=== PATIENT | female | born 1955 | race Two or more races ===

== ENCOUNTER → 2017-02-17 | Outpatient (CLI) | payer OTHER ==
--- NOTE | ~2017-02-17 | MY29 ---
[facility] A Service of [facility] RADIOLOGY TEXT RESULTS PATIENT: MEET REYNA LOCATION: [facility] : 59 UNIT #: [id number] AGE: [address]: THELMA LATIF APRN SEX: F ORDER DR: [id number] [facility] [address] [place], [place] [address] [id number] O MR#: [id number] Acc #: [id number] NAME: MEET REYNA : 1955 SEX: F STUDY DATE/TIME: 02/17/2017 15:25 UNIT: [facility] ROOM: STUDY DESCRIPTION: MY HANS SCREENING W/ CAD BILAT Referring Physician: Mohan Lezama M.D. Ordering Physician: Gino Latif Aprn Primary Care Physician: Mohan Lezama M.D. MEDICAL IMAGING REPORT This report is preliminary unless electronic signature is present EXAM Digital screening mammogram 02/17/2017 HISTORY 61-year-old woman positive family history, mother age 55. Annual screening. COMPARISON STUDIES Mammogram 07/15/2014. Right breast imaging 11/13/2014. FINDINGS Digital imaging of each breast was completed utilizing screening protocol. Review includes FDA-approved CAD device. Breast parenchyma is predominantly fatty replaced in each breast. Mild duct ectasia. Right subareolar location is stable. I see no suspicious mass. There are no interval occurring microcalcifications and no architectural deformity. IMPRESSION Negative mammogram. Annual screening recommended. BIRADS: 1 Negative. Patients over the age of 40 are entered into a reminder system with target due date for the next mammogram. A result letter will also be sent to the patient. Dictated by... Jose Velasco M.D. THIS IS AN ELECTRONICALLY VERIFIED REPORT Jose Velasco M.D. at 02/20/2017 8:06 AM LAINEYB/nkiita [facility] A Service of [facility] RADIOLOGY TEXT RESULTS PATIENT: MEET REYNA LOCATION: [facility] : 59 UNIT #: [id number] AGE: [address]: THELMA LATIF APRN SEX: F ORDER DR: TD: 02/17/2017 21:40 JOB #: [id number] MEDICAL IMAGING REPORT Page 1 of 1 COPY
== END | disposition home or self-care (01) ==
LOC: CWCC 14:30
DX: Z12.31 Encounter for screening mammogram for malignant neoplasm of breast (principal); Z80.3 Family history of malignant neoplasm of breast
CPT/HCPCS: G0202